=== PATIENT | male | born 1970 | race African-American/Black ===

== ENCOUNTER 2020-07-04 11:47 | Emergency (ER) | payer BC ==
[~2020-07-04] VITALS: Ht 172.7 cm; Wt 90.7 kg
--- NOTE | ~2020-07-04 | EMS ---
[place] [address] EMS Patient Care Report Name: JOHANNA ROY Room #: PRE M.Ksenia#: [id number] Admission: Attend Phys: Discharge: Date of : 68 Report #: [id number] THIS REPORT FOR: //name// Report Transmitted: 07/04/2020 11:47 EMS Care Summary [facility] MED-ACT Incident [id number] @ 07/04/2020 11:03 Incident Location [address] [place] [address] [address] [place] [address] Patient JOHANNA ROY Male, 50 Years 1970 Patient Address [address] [place] [address] Patient History Asthma, Patient Allergies No known allergies, Patient Medications Albuterol, Chief Complaint cardiac Disposition Transported No Lights/[place] Dispatch Reason Sick Person Transported To [facility] Narrative EMS was dispatched for a patient with a cardiac rhythm disturbance. EMS arrived on scene to an Orthopedic Surgery facility and found the patient lying on his bed conscious and breathing. Nursing staff advised the patient had [address] [address] EMS Patient Care Report Name: JOHANNA ROY [facility] [id number] Admission: Attend Phys: Discharge: Date of : 68 Report #: [id number] right hip surgery this morning, was brought back to recovery and placed on the monitor when they found a cardiac rhythm disturbance. They advised there was ST elevation in V2,V3 and V4. They also advised the patient never had any complaints of chest pain but gave him 81mg of Aspirin. EMS placed the patient on the monitor and took a set of vitals and performed a 12 lead ECG. The patient was placed on 4lpm O2 NC and placed on the cot. EMS transmitted the 12 lead ECG to [facility]. The patient advised he was short of breath. EMS coached the patient to breath in his nose and out his mouth. EMS placed the patient on the cot and took him to the ambulance. EMS placed the patient on a NRB at 15lpm. EMS continued to monitor the patient and his vital signs. EMS called [facility] and gave report. Hospital staff advised they received the 12 lead transmission. EMS transported the patient to [facility] for further evaluation. Initial Vitals @11:28P: 47,SpO2: 100,AK Suspected: false @11:20P: 49,R: 18,BP: 114/82,Pain: 0/10,GCS: 14,SpO2: 100,Revised Trauma: 12, @11:16P: 48,R: 18,Pain: 0/10,GCS: 14,SpO2: 98,AK Suspected: false @11:14P: 48,R: 18,BP: 103/82,Pain: 0/10,GCS: 14,SpO2: 98,Revised Trauma: 12,AK Suspected: false @11:31P: 44,R: 18,BP: 121/88,Pain: 0/10,GCS: 15,SpO2: 100,Revised Trauma: 12,AK Suspected: false Assessments @11:14MENTAL:Person Oriented,Event Oriented,SKIN:HEENT:Head/Face: No Abnormalities,Neck/Airway: No Abnormalities,LUNG SOUNDS:General: No Abnormalities,ABDOMEN:General: No Abnormalities,PELVIS//GI:No Abnormalities,EXTREMITIES:Left Arm: No Abnormalities,Right Arm: No Abnormalities,Left Leg: No Abnormalities,Right Leg: No Abnormalities,PULSE:NEURO:No Abnormalities, Impression Cardiac arrhythmia/dysrhythmia Procedures @11:1612-Lead ECGResponse: UnchangedSucceeded@11:14ALS AssessmentResponse: UnchangedSucceeded@11:15Oxygen FlowRate: 4 Device: Nasal Cannula (NC) Response: UnchangedSucceeded@11:20Oxygen FlowRate: 15 Device: Non Re-breather Mask (NRB) Response: UnchangedSucceeded@11:15Normal Saline (.9% NaCl) 0cc () Site: Hand-LeftResponse: Unchanged Timeline 11:00,Call Received 11:00,Psap Call 11:03,Dispatched 11:04,En Route [address] [address] EMS Patient Care Report Name: JOHANNA ROY Room #: PRE ER M.R.#: [id number] Admission: Attend Phys: Discharge: Date of : 68 Report #: [id number] 11:11,On Scene 11:14,At Patient 11:14,ALS Assessment,Response: UnchangedSucceeded, 11:14,BP: 103/82 M,PULSE: 48,RR: 18 R,SPO2: 98 Ox,ETCO2: ,BG: ,PAIN: 0,GCS: 14, 11:15,Normal Saline (.9% NaCl) 0cc Site: Hand-Left,Response: Unchanged 11:15,Oxygen FlowRate: 4 Device: Nasal Cannula (NC) Response: UnchangedSucceeded, 11:16,12-Lead ECG,Response: UnchangedSucceeded, 11:16,BP: / M,PULSE: 48,RR: 18 R,SPO2: 98 Ox,ETCO2: ,BG: ,PAIN: 0,GCS: 14, 11:20,Oxygen FlowRate: 15 Device: Non Re-breather Mask (NRB) Response: UnchangedSucceeded, 11:20,BP: 114/82 M,PULSE: 49,RR: 18 R,SPO2: 100 Ox,ETCO2: ,BG: ,PAIN: 0,GCS: 14, 11:28,BP: / M,PULSE: 47,RR: R,SPO2: 100 Ox,ETCO2: ,BG: ,PAIN: ,GCS: , 11:30,Depart Scene 11:31,BP: 121/88 M,PULSE: 44,RR: 18 R,SPO2: 100 Ox,ETCO2: ,BG: ,PAIN: 0,GCS: 15, 11:38,At Destination 12:02,Call Closed Disclaimer v1.1 Copyright 2020 [employer] This EMS Care Summary contains data elements from the applicable legal record (which may be displayed differently). It is designed to provide pertinent information for the following purposes: continuity of care, clinical quality, and state data reporting. The complete legal record is available to ED staff and administrators of the receiving hospital in [employer]'s Patient Tracker. All data is provided "as is."
[2020-07-04] MEDS ORDERED: SYMBICORT160 MCG/4. INH (12:20)
[2020-07-04] MEDS ORDERED: PROAIR HFA8.5 GM INH (12:20)
[2020-07-04 12:36] LABS: ABSOLUTE NEUTROPHILS 5.7 thou/uL (1.4-8.2); BASOPHILS 0.3 % (0.0-2.0); HEMATOCRIT 41.4 % (42.0-52.0); HEMOGLOBIN 13.6 gm/dL (14.0-18.0); LYMPHOCYTES 10.8 % (24.0-44.0); MCH 31.1 pg (26.0-34.0); MCHC 32.9 g/dL (28.0-37.0); MCV 94.3 fL (80.0-100.0); PLATELET COUNT 266 thou/uL (150-400); POLYS 85.9 % (36.0-66.0); RBC 4.38 mil/uL (4.50-6.00); RDW 13.4 % (10.5-14.5); WBC 6.6 thou/uL (4.0-11.0)
[2020-07-04 12:45] LABS: ANION GAP 7 mmol/L (7-16); BUN 17 mg/dL (7-18); CALCIUM 8.9 mg/dL (8.5-10.1); CHLORIDE 104 mmol/L (98-107); CO2 26 mmol/L (21-32); CREATININE 1.3 mg/dL (0.7-1.3); GLUCOSE 103 mg/dL (74-106); POTASSIUM 4.9 mmol/L (3.5-5.1); SODIUM 137 mmol/L (136-145)
[2020-07-04 12:53] LABS: TROPONIN-I <0.06 ng/mL (<0.06)
[2020-07-04 18:01] VITALS: BP 105/65
--- NOTE | 2020-07-05 11:35 | EKG ---
[facility] [place] [address] ELECTROCARDIOGRAM REPORT Name: JOHANNA ROY Room #: DEP [facility]#: [id number] Admission: 07/04/20 Attend Phys: Discharge: 07/04/20 Date of : 68 Report #: [id number] THIS REPORT FOR: cc: Jadiel Taylor K. Steven DO Couchonnal, Luis F. 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
--- NOTE | 2020-07-05 11:36 | EKG ---
[facility] [place] [address] ELECTROCARDIOGRAM REPORT Name: JOHANNA ROY Room #: DEP [facility]#: [id number] Admission: 07/04/20 Attend Phys: Discharge: 07/04/20 Date of : 68 Report #: [id number] THIS REPORT FOR: cc: Jadiel Taylor K. Steven DO Couchonnal, Luis F. 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: Stock Tracer: [facility] : 1970 Requested By: Diego Cabrera Order Number: [id number] MD: Robinson Beltran Measurements Intervals [place] Rate: 52 P: 50 [place]: 173 QRS: 3 QRSD: 91 T: 23 QT: 412 QTc: 384 Interpretive Statements Sinus rhythm Early repolization Compared to ECG 07/04/2020 11:47:11 Sinus bradycardia no longer present Electronically Signed On 07-05-2020 11:36:13 CDT by Robinson Beltran [email or web address] <ELECTRONICALLY SIGNED> By: Robinson Beltran MD 07/05/20 1136 1310 1310 Robinson Betlran MD /EPI
== END 2020-07-04 18:05 | disposition home or self-care (01) ==
LOC: ER 11:47
PROVIDERS: Emergency Medicine
DX: R94.31 Abnormal electrocardiogram [ECG] [EKG] (principal)

== ENCOUNTER 2020-11-09 00:32 | Emergency (ER) | payer BC ==
[~2020-11-09] VITALS: Ht 172.7 cm; Wt 92.5 kg
[~2020-11-09 00:32] MED LIST: PROAIR HFA8.5 GM INH; SYMBICORT160 MCG/4. INH
[2020-11-09] MEDS ORDERED: PREDNISONE50 MG PO (03:34)
[2020-11-09] MEDS ORDERED: SYMBICORT160 MCG/4. INH (03:34)
[2020-11-09 03:44] VITALS: BP 114/66
== END 2020-11-09 03:46 | disposition home or self-care (01) ==
LOC: ER 00:32
DX: J45.909 Unspecified asthma, uncomplicated (principal); Z20.828 Contact with and (suspected) exposure to other viral communicable diseases; Z79.899 Other long term (current) drug therapy

== ENCOUNTER 2020-11-13 21:24 | Emergency (ER) | payer BC ==
[~2020-11-13] VITALS: Ht 172.7 cm; Wt 93.0 kg
[~2020-11-13 21:24] MED LIST changes: +PREDNISONE50 MG PO
[2020-11-13] MEDS ORDERED: PREDNISONE50 MG PO (23:55)
[2020-11-14 01:34] VITALS: BP 122/63
--- NOTE | 2020-11-15 11:16 | EKG ---
[facility] [place] [address] ELECTROCARDIOGRAM REPORT Name: JOHANNA ROY [facility] [id number] Admission: 11/13/20 Attend Phys: Discharge: 11/14/20 Date of : 68 Report #: [id number] [facility] ED Test Date: 2020-11-13 Test Time: 21:34:16 Pat Name: JOHANNA ROY Department: Room: Gender: M Manager Wind: MAISHA : 1970 Requested By: Josemanuel Alvarez Order Number: [id number] MD: Robb Sanchez Measurements Intervals [place] Rate: 81 P: 82 [place]: 162 QRS: 27 QRSD: 84 T: 62 QT: 362 QTc: 421 Interpretive Statements Sinus rhythm J Point elev, probable normal early repol pattern Baseline wander in lead(s) V3 Compared to ECG 07/04/2020 13:10:29 ST (T wave) deviation now present Electronically Signed On 11-15-2020 11:16:00 SHODER FILLER by Robb Sanchez [email or web address] <ELECTRONICALLY SIGNED> By: Robb Sanchez MD, [facility] 11/15/20 1116 33 33 Robb Sanchez MD, FAC /EPI
== END 2020-11-14 01:20 | disposition home or self-care (01) ==
LOC: ER 21:24
DX: J45.901 Unspecified asthma with (acute) exacerbation (principal); Z79.899 Other long term (current) drug therapy

== ENCOUNTER 2020-11-16 23:32 | Emergency (ER) | payer BC ==
[~2020-11-16] VITALS: Ht 172.7 cm; Wt 92.5 kg
[2020-11-17 01:12] LABS: ABSOLUTE NEUTROPHILS 10.8 thou/uL (1.4-8.2); BASOPHILS 0.2 % (0.0-2.0); EOSINOPHILS 0.1 % (0.0-3.0); HEMATOCRIT 39.3 % (42.0-52.0); HEMOGLOBIN 13.1 gm/dL (14.0-18.0); LYMPHOCYTES 5.3 % (24.0-44.0); MCH 30.7 pg (26.0-34.0); MCHC 33.3 g/dL (28.0-37.0); MCV 92.4 fL (80.0-100.0); MONOCYTES 2.5 % (1.0-8.0); PLATELET COUNT 290 thou/uL (150-400); POLYS 91.9 % (36.0-66.0); RBC 4.25 mil/uL (4.50-6.00); RDW 13.7 % (10.5-14.5); WBC 11.7 thou/uL (4.0-11.0)
[2020-11-17 01:24] LABS: CREATININE 1.2 mg/dL (0.7-1.3); POTASSIUM 4.5 mmol/L (3.5-5.1)
[2020-11-17] MEDS ORDERED: ZPAK PO (03:21)
[2020-11-17 03:26] VITALS: BP 110/68
--- NOTE | 2020-11-17 07:18 | EKG ---
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 : 1970 Requested By: Diego Cabrera Order Number: [id number] MD: Robb Sanchez Measurements Intervals [place] Rate: 67 P: 66 WI: 168 QRS: 32 QRSD: 91 T: 61 QT: 380 QTc: 401 Interpretive Statements Sinus rhythm Probable left atrial enlargement J Point elevation Infero-lateral leads Compared to ECG 11/13/2020 21:34:16 ST (T wave) deviation now present Electronically Signed On 11-17-2020 7:18:45 STEAM SHOVEL OPERATING ENGINEER by Robb Sanchez [email or web address] <ELECTRONICALLY SIGNED> By: Robb Sanchez MD, [facility] 11/17/20 0718 0034 0034 Robb Sanchez MD, FACC /EPI
== END 2020-11-17 03:35 | disposition home or self-care (01) ==
LOC: ER 23:32
PROVIDERS: Emergency Medicine
DX: J18.9 Pneumonia, unspecified organism (principal); J45.909 Unspecified asthma, uncomplicated; Z79.899 Other long term (current) drug therapy

== ENCOUNTER 2021-04-26 15:20 | Emergency (ER) | payer BC ==
[~2021-04-26] VITALS: Ht 172.7 cm; Wt 83.9 kg
[~2021-04-26 15:20] MED LIST changes: +ZPAK PO
[2021-04-26 16:55] LABS: ABSOLUTE NEUTROPHILS 12.9 thou/uL (1.4-8.2); BASOPHILS 0.1 % (0.0-2.0); HEMATOCRIT 37.8 % (42.0-52.0); HEMOGLOBIN 12.5 gm/dL (14.0-18.0); LYMPHOCYTES 5.2 % (24.0-44.0); MCHC 33.1 g/dL (28.0-37.0); MCV 93.8 fL (80.0-100.0); MONOCYTES 7.4 % (1.0-8.0); PLATELET COUNT 305 thou/uL (150-400); POLYS 87.3 % (36.0-66.0); RBC 4.03 mil/uL (4.50-6.00); RDW 13.9 % (10.5-14.5); WBC 14.8 thou/uL (4.0-11.0)
[2021-04-26 17:05] LABS: CALCIUM 9.7 mg/dL (8.5-10.1); CREATININE 0.9 mg/dL (0.7-1.3)
[2021-04-26 17:07] LABS: POTASSIUM 5.4 mmol/L (3.5-5.1)
[2021-04-26] MEDS ORDERED: ZYRTEC 10 MG TA10 MG PO (18:16)
[2021-04-26] MEDS ORDERED: PREDNISONE 10 M10 MG PO (18:16)
[2021-04-26] MEDS ORDERED: SINGULAIR 10 MG10 MG PO (18:16)
[2021-04-26 18:19] VITALS: BP 105/60
[2021-05-04] MEDS ORDERED: PREDNISONE 20 M20 M1 PO (07:44)
== END 2021-04-26 18:19 | disposition home or self-care (01) ==
LOC: ER 15:20
PROVIDERS: Physician Assistant
DX: J45.901 Unspecified asthma with (acute) exacerbation (principal); Z20.822 Contact with and (suspected) exposure to COVID-19

== ENCOUNTER 2021-04-28 21:02 | Inpatient (IN) | payer BC ==
[~2021-04-28] VITALS: Ht 172.7 cm; Wt 81.6 kg
[~2021-04-28 21:02] MED LIST changes: +PREDNISONE 10 M10 MG PO; +SINGULAIR 10 MG10 MG PO; +ZYRTEC 10 MG TA10 MG PO
[2021-04-28 21:03] VITALS: BP 142/93; BP 142/94
[2021-04-28 21:20] LABS: BASOPHILS 0.4 % (0.0-2.0); EOSINOPHILS 0.2 % (0.0-3.0); HEMATOCRIT 36.5 % (42.0-52.0); HEMOGLOBIN 12.6 gm/dL (14.0-18.0); LYMPHOCYTES 6.8 % (24.0-44.0); MCH 31.5 pg (26.0-34.0); MCHC 34.6 g/dL (28.0-37.0); MCV 91.2 fL (80.0-100.0); MONOCYTES 7.2 % (1.0-8.0); PLATELET COUNT 322 thou/uL (150-400); POLYS 85.4 % (36.0-66.0); RDW 13.4 % (10.5-14.5); WBC 12.9 thou/uL (4.0-11.0)
[2021-04-28 21:27] LABS: CALCIUM 9.5 mg/dL (8.5-10.1); POTASSIUM 4.5 mmol/L (3.5-5.1)
[2021-04-28 21:34] LABS: ALBUMIN 3.9 g/dL (3.4-5.0); TOTAL BILIRUBIN 0.3 mg/dL (0.2-1.0); TOTAL PROTEIN 7.4 g/dL (6.4-8.2)
[2021-04-28 22:41] LABS: BE(vivo) -0.6 mmol/L (-2 to +3); HCO3 24.6 mmol/L (22.0-26.0); PCO2 42.8 mmHg (35.0-45.0); PO2 121.4 mmHg (80.0-100.0); pH 7.378 (7.360-7.450); sO2 98.3 % (92.0-98.0)
[2021-04-29] VITALS (8 sets, daily range): BP systolic 99–134; BP diastolic 51–87
--- NOTE | 2021-04-29 05:26 | NUR ---
ASSUMED CARE OF PT FROM ED AT 0230HRS. PT IS AOX4 AND LETS NEEDS BE KNOWN. PT IS UP AD BUZZ. PT WAS ABLE TO ANSWER ALL ADMISSION RELATED QUESTIONS AND SIGN CONSENTS. ASSESSMENT CHARTED. BREATHING TREATMENT CONTINUED. CONSULT CALLED. PT DENED PAIN, NAUSEA OR SOA. PT HAS A CONGESTED COUGH. PT SLEPT PART OF THE SHIFT. VSS AND NO S/S OF ACUTE DISTRESS. WILL CONTINUE TO MONITOR.
--- NOTE | 2021-04-29 09:09 | NUR ---
ASSESSMENT: CM REVIEWED CHART AND MET WITH PATIENT AT THE BEDSIDE. PT IS ALERT AND ORIENTED X4. PT WAS ADMITTED DUE TO ASTHMA EXACERBATION AND IS ON IV STEROIDS. PT REPORTS LIVING IN A HOUSE WITH HIS AND CHILDREN. PT REPORTS THAT HE IS FULLY INDEPENDENT WITH ADLS AND AMBULATION. PT STATES HE HAS NO HX OF HH. CM DISCUSSED ROLE. PT DOES NOT ANTICIPATE HAVING ANY NEEDS FROM CM. CM WILL CONTINUE TO FOLLOW TO ASSIST NEEDED.
--- NOTE | 2021-04-29 12:57 | NUR ---
ASSUMED PT CARE AROUND 0700. PT ALERT X ORIENTED X 4. ON ROOM AIR. UP AD BUZZ.O/E CHEST B/L WHEEZING. IV RT HAND/ SALINE LOCKED. LBM ON 04/27/21. CALL LIGHT WITH IN REACH. WILL CALL APPROPRIATELT. WILL CONTINUE TO MONITOR.
[2021-04-29 20:55] LABS: HEMATOCRIT 38.6 % (42.0-52.0); MCH 31.2 pg (26.0-34.0); MCHC 33.6 g/dL (28.0-37.0); MCV 93.1 fL (80.0-100.0); RBC 4.15 mil/uL (4.50-6.00); RDW 13.6 % (10.5-14.5); WBC 15.7 thou/uL (4.0-11.0)
[2021-04-29 20:57] LABS: ANION GAP 12 mmol/L (7-16); BUN 19 mg/dL (7-18); CALCIUM 9.8 mg/dL (8.5-10.1); CHLORIDE 101 mmol/L (98-107); CO2 26 mmol/L (21-32); CREATININE 1.1 mg/dL (0.7-1.3); GLUCOSE 126 mg/dL (74-106); POTASSIUM 4.2 mmol/L (3.5-5.1); SODIUM 139 mmol/L (136-145)
[2021-04-29 21:06] LABS: TROPONIN-I <0.06 ng/mL (<0.06)
--- NOTE | 2021-04-29 23:23 | NUR ---
PT C/O CHEST PAIN WHEN THE SHIFT STARTED.PT STATED THAT THE PAIN FELT LIKE PRESSURE TO HIS L CHEST.PT STATED THAT HE HAD HAD THIS SYMPTOM IN THE PAST AND IT WENT AWAY AFTER HE MASSAGED THE AREA.PT WAS OBSERVED MASSAGING HIS CHEST AND STATED THAT HE DID NOT FEEL ANY RELIEVE FROM IT.RAPID RESPONSE WAS INITIATED,PT PUT ON OXGYGEN,EATING DISORDER SPECIALIST ON DUTY AND VACUUM WORKER WERE NOTIFIED. STAT EKG WAS OBTAINED,RESULT SENT TO EATING DISORDER SPECIALIST.PT RECEIVED NITROGLYCERIN X3 WITH NO RELIEVE, SEE EMAR.LABS DRAWN.CONSULT FOR DR LÓPEZ WAS NOTED.PT WENT DOWN FOR CT OF CHEST AND WAS TRANSFERRED TO 212 WITH ALL HIS PERSONAL BELONGING IN THE CARE OF HIS AT BEDSIDE.REPORT CALLED DOWN TO THE NURSE.
[2021-04-30 00:13] VITALS: BP 122/79
--- NOTE | 2021-04-30 00:25 | NUR ---
EMS DIRECTOR called at 2031 for c/o chest pain. See EMS DIRECTOR flowsheet.
--- NOTE | 2021-04-30 00:38 | NUR ---
PATIENT WAS A TRANSFER TO THE UNIT THIS SHIFT AT AROUND 2200. PATIENT IS ALERT AND ORIENTED BUT COMPLAINING OF RIGHT SIDED CHEST PAIN. ORDERS RECEIVED FOR STAT EKG SHOWING ST ELEVATION SUGGESTING PERICARDITIS. EKG SHOWN TO HOUSE PAINTER AT BEDSIDE WHO GAVE MEDICATION ORDERS FOR PAIN AND INFLAMMATION. MEDICATIONS MOSTLY SUCCESSFUL IN RELIEVING PAIN. NURSE TO CLOSELY MONITOR.
[2021-04-30 04:56] VITALS: BP 116/73
[2021-04-30 05:11] LABS: TROPONIN-I <0.06 ng/mL (<0.06)
--- NOTE | 2021-04-30 07:15 | EKG ---
[place] [address] [facility] [place] [address] ELECTROCARDIOGRAM REPORT Name: JOHANNA ROY CHANTAL Room #: 212-P ADM IN M.R.#: [id number] Admission: 04/28/21 Attend Phys: Cristino Sexton MD Discharge: Date of : 68 Report #: [id number] [facility] Test Date: 2021-04-29 Test Time: 20:40:50 Pat Name: JOHANNA ROY Department: Room: [facility] Gender: M Transport Aide: MPACONNIE : 1970 Requested By: Peña Tobar Order Number: [id number] MD: Robb Sanchez Measurements Intervals [place] Rate: 67 P: 72 [place]: 149 QRS: 12 QRSD: 99 T: 38 QT: 391 QTc: 413 Interpretive Statements Sinus rhythm Probable left ventricular hypertrophy ST elevation suggests acute pericarditis Compared to ECG 11/17/2020 00:34:43 No significant changes Electronically Signed On 04-30-2021 7:15:39 CDT by Robb Sanchez [email or web address] <ELECTRONICALLY SIGNED> By: Robb Sanchez MD, [facility] 04/30/21714 2040 39 Robb Sanchez MD, FACC /EPI
--- NOTE | 2021-04-30 07:56 | EKG ---
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: UNKNOWN : 1970 Requested By: Cristino Sexton Order Number: [id number] MD: Sanket Cadena Measurements Intervals [place] Rate: 68 P: 72 [place]: 159 QRS: 13 QRSD: 90 T: 43 QT: 390 QTc: 415 Interpretive Statements Sinus rhythm ST elevation suggests acute pericarditis versus early repolarization Compared to ECG 04/29/2021 20:40:50 No significant changes Electronically Signed On 04-30-2021 7:56:27 CDT by Sanket Cadena [email or web address] <ELECTRONICALLY SIGNED> By: Sanket Cadena MD, [facility] 04/30/21 0756 18 18 Sanket Cadena MD, [facility] /EPI
--- NOTE | 2021-04-30 07:58 | EKG ---
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: SANTOSH : 1970 Requested By: Peña Tobar Order Number: [id number] MD: Sanket Cadena Measurements Intervals [place] Rate: 67 P: 73 NM: 152 QRS: 28 QRSD: 87 T: 60 QT: 380 QTc: 401 Interpretive Statements Sinus rhythm Consider left ventricular hypertrophy ST elevation suggests acute pericarditis versus early repolarization Compared to ECG 04/29/2021 20:40:50 No significant changes Electronically Signed On 04-30-2021 7:58:03 CDT by Sanket Cadena [email or web address] <ELECTRONICALLY SIGNED> By: Sanket Cadena MD, [facility] 04/30/21 0758 1 1 Sanket Cadena MD, [facility] /EPI
[2021-04-30 08:08] VITALS: BP 113/86
[2021-04-30 08:11] LABS: CHOLESTEROL 202 mg/dL (<200); HDL CHOLESTEROL 54 mg/dL (>40); LDL CHOLESTEROL 143 mg/dL (<100); TC:HDL 3.7 Ratio (Not establshd); TRIGLYCERIDE 29 mg/dL (<150); VLDL 6 mg/dL (<40)
--- NOTE | 2021-04-30 11:03 | 2DMMODE ---
[facility] [place] [address] 2 D/M-MODE ECHOCARDIOGRAM Name: JOHANNA ROY CHANTAL Room #: 212-P ADM IN M.R.#: [id number] Admission: 04/28/21 Attend Phys: Cristino Sexton MD Discharge: Date of : 68 Report #: [id number] THIS REPORT FOR: cc: Jadiel Taylor K. Steven DO Santiago, Patrick MD [facility] ~ APPROVED REPORT Study performed: 04/30/2021 09:20:40 EXAM: Comprehensive 2D, Doppler, and color-flow Echocardiogram Patient Location: Echo lab Room #: 212 Status: routine BSA: 1.96 HR: 69 bpm BP: 113/86 mmHg Rhythm: NSR Other Information Study Quality: Good Indications Abnormal ECG Chest Pain Pericarditis 2D Dimensions RVDd: 37.08 mm IVSd: 10.75 (7-11mm) LVOT Diam: 21.99 (18-24mm) LVDd: 46.13 mm PWd: 9.58 (7-11mm) Ascending Ao: 30.37 (22-36mm) LVDs: 30.53 (25-40mm) Left Atrium: 28.80 (27-40mm) Aortic Root: 30.95 mm Volumes Left Atrial Volume (Systole) Single Plane 4CH: 54.33 mL Single Plane 2CH: 48.89 mL LA ESV Index: 28.00 mL/m2 Aortic Valve AoV Peak David.: 1.53 m/s AO Peak Gr.: 9.34 mmHg LVOT Max P.58 mmHg [facility] [address] [place] [address] 2 D/M-MODE ECHOCARDIOGRAM Name: JOHANNA ROY Room #: 212-P [facility]#: [id number] Admission: 04/28/21 Attend Phys: Cristino Sexton MD Discharge: Date of : 68 Report #: [id number] LVOT Max V: 1.38 m/s CINDY Vmax: 3.42 cm2 Mitral Valve E/A Ratio: 1.6 MV Decel. Time: 243.30 ms MV E Max David.: 0.69 m/s MV A David.: 0.42 m/s MV PHT: 70.56 ms IVRT: 76.12 ms Pulmonary Valve PV Peak David.: 0.70 m/s PV Peak Gr.: 1.96 mmHg Pulmonary Vein P Vein S: 0.49 m/s P Vein D: 0.64 m/s P Vein S/D Ratio: 0.77 Tricuspid Valve TR Peak David.: 2.19 m/s RAP Estimate: 5.00 mmHg TR Peak Gr.: 19.24 mmHg PA Pressure: 24.00 mmHg Left Ventricle The left ventricle is normal size. There is normal LV segmental wall motion. There is normal left ventricular wall thickness. Left ventricular systolic function is normal. LVEF is 60-65%. The left ventricular diastolic function is normal. Right Ventricle The right ventricle is normal size. The right ventricular systolic function is normal. Atria The left atrium size is normal. The right atrium size is normal. Aortic Valve The aortic valve is normal in structure. Trace aortic regurgitation. There is no aortic valvular stenosis. Mitral Valve The mitral valve is normal in structure. Trace mitral regurgitation. No evidence of mitral valve stenosis. [facility] [place] [place] [address] 2 D/M-MODE ECHOCARDIOGRAM Name: JOHANNA ROY Room #: 212-P [facility] IN M.R.#: [id number] Admission: 04/28/21 Attend Phys: Cristino Sexton MD Discharge: Date of : 68 Report #: [id number] Tricuspid Valve The tricuspid valve is normal in structure. Unable to assess PA pressure. Estimated PAP is 24mmHg. Pulmonic Valve The pulmonary valve is normal in structure. There is no pulmonic valvular regurgitation. Great Vessels The aortic root is normal in size. The ascending aorta is normal in size. IVC is normal in size and collapses >50% with inspiration. Pericardium There is no pericardial effusion. <Conclusion> Normal left ventricular size/function Ejection fraction 60% Grade 1 diastolic function Normal right ventricular size/function Normal atrial size Normal aortic/mitral valve structure and function Trace tricuspid valve insufficiency, unable to assess PA systolic pressure Normal aortic root size No pericardial effusion <ELECTRONICALLY SIGNED> By: Robb Sanchez MD, FACC 04/30/211101 01 01 Robb Sanchez MD, FACC /INF
[2021-04-30 11:13] VITALS: BP 128/77
[2021-04-30 15:21] VITALS: BP 122/81
[2021-04-30 19:10] VITALS: BP 130/73
--- NOTE | 2021-04-30 19:25 | NUR ---
ASSESSMENTS CHARTED - MEDS PER [facility] DIET AND FLUIDS. GIVEN TYLENOL FOR CO'S OF HEADACHE WITH GOOD RELIEF. PT UP AD BUZZ IN ROOM. NO CO'S OF CHEST PAIN TODAY. FAMILY IN TO VISIT. NO CO'S AT THE PRESENT TIME.
[2021-05-01 08:54] VITALS: BP 132/74
[2021-05-01] MEDS ORDERED: COLCHICINE0.6 M1 PO (10:52)
[2021-05-01] MEDS ORDERED: ASPIRIN325 PO (10:52)
[2021-05-01] MEDS ORDERED: LIPITOR 20 MG T20 M1 PO (10:52)
[2021-05-01 12:34] VITALS: BP 139/88
--- NOTE | 2021-05-01 15:57 | NUR ---
Patient to possibly dc home tomorrow with no needs from casemgt.
[2021-05-01 16:00] VITALS: BP 127/85
--- NOTE | 2021-05-01 16:34 | NUR ---
ASSUMED CARE SHIFT CHANGE. VSS. DENIES CP, PT REQUESTED BREATHING TREATMENT D/T SOA, RESOLVED WITH TREATMENT .PT UP FERNANDO WELL. PLAN FOR HOME IN AM. DENYING NEEDS CURRENTLY. CONT POC. WILL PASS ON REPORT TO STEFANO RIOS.
[2021-05-01 19:24] VITALS: BP 132/76
[2021-05-02 03:50] VITALS: BP 137/89
--- NOTE | 2021-05-02 04:16 | NUR ---
SLEPT MOST OF SHIFT. UP AD BUZZ IN ROOM WITH STEADY GAIT. WORKING ON GOALS AND PLAN OF CARE FOR NOC. DENIES COMPLAINTS OF CHEST PAIN AT THIS TIME. CHEST HURTS WHEN COUGHING. REQUEST BREATHING TREATMENT AND RT CALLED. CONTINUE TO ASSES.
[2021-05-02 07:38] VITALS: BP 121/79
[2021-05-02 07:45] VITALS: BP 121/79
[2021-05-02] MEDS ORDERED: PREDNISONE50 MG PO (10:18)
[2021-05-02] MEDS ORDERED: DOXYCYCLINE HYC50 MG PO (10:18)
[2021-05-02 11:36] VITALS: BP 121/79
--- NOTE | 2021-05-02 12:37 | NUR ---
PT CARE ASSUMED AT 0700. ASSESSMENTS CHARTED. MEDICATIONS CHARTED. RH IV. SINUS RHYTHM. ACHS; HEART HEALTHY DIET. ACUTE ASTHMA. PERICARDITIS. UP AD BUZZ. PT DISCHARGED TO HOME. DISCHARGE PAPERWORK SIGNED. TELEMETRY D/C'D. IV D/C'D.
[2021-05-04] MEDS ORDERED: PREDNISONE 20 M20 M1 PO (07:44)
== END 2021-05-02 12:46 | disposition home or self-care (01) | DRG 314 ==
LOC: ER 21:02 → EROBS 22:51 → 2N 22:51 → 4S 22:51 → 2N 04-29 22:26
PROVIDERS: Emergency Medicine; Nurse Practitioner Family; ADMIT Hospitalist; ATTEND Hospitalist
DX: I30.9 Acute pericarditis, unspecified (principal); J96.01 Acute respiratory failure with hypoxia; J45.901 Unspecified asthma with (acute) exacerbation; J20.9 Acute bronchitis, unspecified; Z20.822 Contact with and (suspected) exposure to COVID-19; E78.5 Hyperlipidemia, unspecified; F12.90 Cannabis use, unspecified, uncomplicated; R07.81 Pleurodynia; Z79.899 Other long term (current) drug therapy; Z71.51 Drug abuse counseling and surveillance of drug abuser
CPT/HCPCS: 10081

== ENCOUNTER 2021-05-13 16:34 | Emergency (ER) | payer BC ==
[~2021-05-13] VITALS: Ht 172.7 cm; Wt 80.7 kg
[~2021-05-13 16:34] MED LIST changes: +ASPIRIN325 PO; +COLCHICINE0.6 M1 PO; +DOXYCYCLINE HYC50 MG PO; +LIPITOR 20 MG T20 M1 PO; +PREDNISONE 20 M20 M1 PO
[2021-05-13 17:16] LABS: HEMATOCRIT 37.1 % (42.0-52.0); HEMOGLOBIN 12.4 gm/dL (14.0-18.0); MCH 31.2 pg (26.0-34.0); MCHC 33.6 g/dL (28.0-37.0); RBC 3.99 mil/uL (4.50-6.00); RDW 14.1 % (10.5-14.5); WBC 9.7 thou/uL (4.0-11.0)
[2021-05-13 17:25] LABS: ANION GAP 7 mmol/L (7-16); BUN 10 mg/dL (7-18); CALCIUM 8.4 mg/dL (8.5-10.1); CHLORIDE 108 mmol/L (98-107); CO2 27 mmol/L (21-32); GLUCOSE 103 mg/dL (74-106); POTASSIUM 3.8 mmol/L (3.5-5.1); SODIUM 142 mmol/L (136-145)
[2021-05-13 17:34] LABS: ALBUMIN 3.1 g/dL (3.4-5.0); SGOT 12 U/L (15-37); SGPT 33 U/L (16-63); TOTAL BILIRUBIN 0.3 mg/dL (0.2-1.0); TROPONIN-I <0.06 ng/mL (<0.06)
[2021-05-13 21:19] VITALS: BP 119/73
--- NOTE | 2021-05-14 08:23 | EKG ---
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 : 1970 Requested By: Dany Warner Order Number: [id number] MD: Robb Sanchez Measurements Intervals [place] Rate: 79 P: 69 WI: 149 QRS: 24 QRSD: 84 T: 44 QT: 343 QTc: 394 Interpretive Statements Sinus rhythm Probable left atrial enlargement Compared to ECG 04/30/2021 07:22:09 Early repolarization no longer present ST (T wave) deviation still present Electronically Signed On 05-14-2021 7:02:59 CDT by Robb Sanchez [email or web address] <ELECTRONICALLY SIGNED> By: Robb Sanchez MD, [facility] 05/14/21 0702 40 40 Robb Sanchez MD, FACC /EPI
== END 2021-05-13 21:26 | disposition home or self-care (01) ==
LOC: ER 16:34
PROVIDERS: Emergency Medicine
DX: R07.89 Other chest pain (principal); J45.909 Unspecified asthma, uncomplicated; Z98.890 Other specified postprocedural states

== ENCOUNTER → 2021-05-27 | Outpatient (CLI) | payer BC | LOC: SJCVCIMAG 10:21 | PROVIDERS: ATTEND Internal Medicine Cardiovascular Disease | DX: I49.3 Ventricular premature depolarization (principal); R07.89 Other chest pain; R06.00 Dyspnea, unspecified ==